=== PATIENT | female | born 2005 | race Caucasian/White ===

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

== ENCOUNTER 2024-03-14 02:36 | Emergency (ER) | payer BC ==
[2024-03-14 02:48] VITALS: RESP 17; TEMP 98.1
--- NOTE | 2024-03-14 03:08 | ERPHSYRPT ---
- History of Present Illness Time Seen by Provider: 03/14/24 03:00 Source: patient, family Exam Limitations: no limitations Patient Subjective Stated Complaint: rectal pain, "I'm not sure what it is but it hurts". Triage Nursing Assessment: Pt ambulated into ER without diff. Pt c/o rectal pain x2 days, but the pain is getting worse and pt states, "I'm not sure what it is". It appears to be a hemorrhoid and is painful for pt to sit or get comf ortable. No bleeding noted. Physician History: This is an obese 18-year-old white female patient who arrives to the emergency department by private vehicle accompanied by significant other with a complaint of perianal pain and "lump". She is never anything like this before. She cannot get comfortable. She feels this lump is enlarging in size. Timing/Duration: day(s) (2), worse Activites at Onset: none Quality: aching, throbbing Onset Location: other (Left perianal) Severity of Pain-Max: moderate Severity of Pain-Current: moderate Sexual intercourse history: non-contributory Modifying Factors: Improves With: nothing Associated Symptoms: lumps (Left perianal lump, tender) Allergies/Adverse Reactions: lavender (Lavandula angustifolia) Allergy (Verified 03/14/24 02:51) Anaphylactic Reaction Home Medications: No Reportable Medications [No Reported Medications] 11/19/22 [History] Hx Tetanus, Diphtheria Vaccination/Date Given: Yes Hx Influenza Vaccination/Date Given: No Hx Pneumococcal Vaccination/Date Given: No Travel Risk - International Travel Have you traveled outside of the country in past 3 weeks: No - Emerging Infectious Disease Are you exhibiting symptoms associated with any current EIDs: No - Review of Systems Constitutional: No Symptoms Eyes: No Symptoms Ears, Nose, & Throat: No Symptoms Respiratory: No Symptoms Cardiac: No Symptoms Abdominal/Gastrointestinal: Other (Tender, left perianal lump) Musculoskeletal: No Symptoms Skin: No Symptoms Neurological: No Symptoms Psychological: No Symptoms Endocrine: No Symptoms Hematologic/Lymphatic: No Symptoms Immunological/Allergic: No Symptoms All Other Systems: Reviewed and Negative - Past Medical History Pertinent Past Medical History: No - Past Surgical History Past Surgical History: Yes Gastrointestinal: Hernia Repair - Female History Hx Last Menstrual Period: 01/09/24 Hx Now: No - Social History Smoking Status: Never smoker Exposure to second hand smoke: No Drug Use: none Patient Lives Alone: No - Social Determinants of Health Will the patient participate in the screening: Declined to provide - Nursing Vital Signs Nursing Vital Signs: Initial Vital Signs Blood Pressure 135/82 03/14/24 02:46 O2 Sat by Pulse Oximetry 96 03/14/24 02:46 Pain Scale Pain Intensity 7 - Physical Exam General Appearance: no apparent distress, alert, anxiety, obese SpO2: 98 Procedures - Incision and Drainage Time of Procedure: 04:00 Anesthesia: 1% Lidocaine cc's of anesthesia: 2 Blade Size: 15 I & D Procedure: betadine prep, other (Elliptical incision to unroofed a thrombosed external hemorrhoid to the left of center. Significant amounts of clot were removed. Patient's pain resolved) - Course Nursing assessment & vital signs reviewed: Yes Ordered Tests: Medication Summary Discontinued Medications Generic Name Dose Route Start Last Admin Trade Name Freq PRN Reason Stop Dose Admin Lidocaine/Prilocaine 2.5 gm 03/14/24 03:26 03/14/24 03:27 Lidocaine/Prilocaine 5 Gm 5 Gm Tube TP 03/14/24 03:27 2.5 gm STAT ONE Administration Lidocaine/Prilocaine Confirm 03/14/24 03:25 Lidocaine/Prilocaine 5 Gm 5 Gm Tube Administered 03/14/24 03:26 Dose 5 gm TP .STK-MED ONE - Progress Progress: improved Air Movement: good Progress Note: 03/14/24 04:09 My medical decision making and the assignment of low complexity to this patient's medical issue today is based on review of the patient's past medical history, review of the patient's medication list, review the patient drug allergy list, history present illness and physical findings on examination. No radiographic or laboratory studies are necessary in this patient. Differential diagnosis includes but is not limited to anal fissure, thrombosed external hemorrhoid, internal hemorrhoid Medical Desision Making - Independent Historian Additional History obtained from: Relative/friend - Diagnostic Testing Diagnostic test were ordered, analyzed, and reviewed by me: Yes - Risk of complications Minimal Risk: Minimal risk of morbidity - Departure Departure Disposition: Home Clinical Impression: Thrombosed external hemorrhoid Condition: Stable Critical Care Time: No Referrals: Provider,Unknown [Primary Care Provider] - Follow up/PCP as directed Additional Instructions: Change noah-pad as needed each day. Expect bleeding from site but this should improve each day. Sitz bath and warm soapy water or warm Epson salt soaks 2-3 times a day. Dry the site and reapply noah-pad. May use Tylenol and ibuprofen for pain control Forms: Work/School Release Form
[2024-03-14] MEDS ORDERED: EMLA Cream 5 GM TP ONE (03:25)
[2024-03-14] MEDS: EMLA Cream 5 GM TP ONE (03:27)
[2024-03-14 04:12] VITALS: O2SAT 98
[2024-03-14 04:15] VITALS: BP 130/80; PULSE 66
[2024-03-14] MEDS ORDERED: NORCO 5/325 MG ONE (04:15)
[2024-03-14] MEDS: NORCO 5/325 MG PO ONE (04:16)
== END 2024-03-14 04:28 | disposition home or self-care (01) ==
LOC: ED 02:36
DX: K64.5 Perianal venous thrombosis (principal)
CPT/HCPCS: 46083; 99283; A9270-GY